=== PATIENT | male | born 1975 | race Two or more races ===

== ENCOUNTER 2022-11-27 17:03 | Emergency (ER) | payer MEDICAID, OTHER ==
[2022-11-27 17:30] VITALS: BP 122/71
[2022-11-27] MEDS ORDERED: NAP500T PO (22:52)
[2022-11-27] MEDS ORDERED: KETOROLAC TROMETH 60MG/2ML VIAL IM ONE (23:00)
== END 2022-11-27 23:38 | disposition home or self-care (01) ==
LOC: ER 17:03
DX: G89.29 Other chronic pain (principal); M25.551 Pain in right hip
CPT/HCPCS: 96372; 99283; J1885